=== PATIENT | female | born 1960 | race Caucasian/White ===

== ENCOUNTER 2018-06-20 06:25 | Day surgery (SDC) | payer OTHER ==
[~2018-06-20] VITALS: Ht 172.7 cm; Wt 100.9 kg
[~2018-06-20 06:25] MED LIST: ALBU8.5H8 IH; ALPR0.255 PO; BECL10.62 IH; FLUT16H NASAL; FOLI1 PO; GABA-531 PO; IBUP-2071 PO; METH2.5T6 PO; METO25 PO; NITR25OR3 PO; OMEP20 PO; PRED20 PO
[2018-06-20] MEDS ORDERED: ALBUTEROL SULFATE 2.5 MG/0.5 ML NEB SOLUTION NEB ONE (06:26)
[2018-06-20] MEDS ORDERED: LIDOCAINE 2% 30 ML JELLY TP ONE (06:26)
[2018-06-20] MEDS ORDERED: BENZOCAINE 20% 50 MCG/SPRAY 57 GM TP ONE (06:26)
[2018-06-20] MEDS ORDERED: SODIUM CHLORIDE 0.9% 1,000 ML IV ONE ×2 (06:35→07:00)
[2018-06-20] MEDS ORDERED: FentaNYL CITRATE-PF 100 MCG/2 ML VIAL ONE (08:07)
[2018-06-20] MEDS ORDERED: MIDAZOLAM HCL 2 MG/2 ML VIAL ONE (08:07)
[2018-06-20] MEDS ORDERED: MethylPREDNISolone SOD SUCC 125 MG/2 ML VIAL IVP ONE (09:15)
[2018-06-20] MEDS ORDERED: MethylPREDNISolone SOD SUCC 125 MG/2 ML VIAL ONE (09:20)
[2018-06-20] MEDS ORDERED: OXYGEN THERAPY IH SCH (20:00)
== END 2018-06-20 10:30 | disposition home or self-care (01) ==
LOC: SURGERY 06:25
PROVIDERS: ATTEND Internal Medicine Critical Care Medicine
DX: J38.4 Edema of larynx (principal); B37.0 Candidal stomatitis; J84.111 Idiopathic interstitial pneumonia, not otherwise specified; J45.998 Other asthma; M06.9 Rheumatoid arthritis, unspecified; F41.8 Other specified anxiety disorders; F32.9 Major depressive disorder, single episode, unspecified; I51.9 Heart disease, unspecified; Z79.1 Long term (current) use of non-steroidal anti-inflammatories (NSAID); Z87.01 Personal history of pneumonia (recurrent); Z90.49 Acquired absence of other specified parts of digestive tract; Z79.891 Long term (current) use of opiate analgesic; Z79.51 Long term (current) use of inhaled steroids; Z79.899 Other long term (current) drug therapy; Z98.890 Other specified postprocedural states
CPT/HCPCS: 31623; 31624; 71045; 87070; 87205; 87206; 87220; 88108; 88312; 93005; J2250; J2930; J3010; J7030; 87015